=== PATIENT | female | born 1965 | race Two or more races ===

== ENCOUNTER 2017-04-14 10:53 | Emergency (ER) | payer OTHER | END 2017-04-14 17:44 | disposition home or self-care (01) | LOC: CED 10:53 | DX: S16.1XXA Strain of muscle, fascia and tendon at neck level, initial encounter (principal); S39.012A Strain of muscle, fascia and tendon of lower back, initial encounter; S29.012A Strain of muscle and tendon of back wall of thorax, initial encounter; G44.209 Tension-type headache, unspecified, not intractable; X58.XXXA Exposure to other specified factors, initial encounter | CPT/HCPCS: 82947; 96372; 99284; J1885 ==